=== PATIENT | female | born 1985 | race Two or more races ===

== ENCOUNTER 2018-09-26 13:15 | Emergency (ER) | payer SELFPAY ==
[~2018-09-26] VITALS: Ht 165.1 cm; Wt 69.4 kg
[2018-09-26] MEDS ORDERED: NKM (13:19)
--- NOTE | 2018-09-26 13:25 | NUR ---
ED Nurse Note: Pt BIBA from home due to RLQ abdominal pain with n/v since this morning 1 hr prior to arrival. Pain 10/10 luisa. Last bowel movement was yesterday, was normal. AOx4, VSS luisa. Will cont to monitor.
[2018-09-26] MEDS ORDERED: Metoclopramide 10mg/2ml Inj IVP ONE (13:30)
[2018-09-26] MEDS ORDERED: Morphine Sulfate 4mg/ml Inj (IV USE ONLY) IVP ONE (13:30)
[2018-09-26] MEDS ORDERED: Isovue-300 100ml vial INJ PRN (13:30)
--- NOTE | 2018-09-26 13:45 | Emergency Room Report ---
History of Present Illness General Chief Complaint: Abdominal Pain Source: Patient Present Illness HPI Patient presents with complaints of pain to the right lower quadrant Reports that his started essentially 2 hours prior to arrival sharp pain Patient claims of 1 episode of vomiting denies any diarrhea She also started her menstrual cycle today Denies any chest pain or shortness of breath denies any fevers or chills Patient reports previous cyst removal from the right ovary Denies any vaginal discharge denies any dysuria frequency pain is 10 out of 10 localized to the right lower quadrant Allergies: Coded Allergies: No Known Allergies (Unverified , 09/26/18) Patient History Past Medical History: see triage record Pertinent Family History: none Last Menstrual Period: 09/26/18 Reviewed Nursing Documentation: PMH: Agreed; PSxH: Agreed Nursing Documentation-PMH Past Medical History: No History, Except For Hx Gastrointestinal Problems: No - ovrian cyst Review of Systems All Other Systems: negative except mentioned in HPI Physical Exam Vital Signs Date Time Temp Pulse Resp B/P (MAP) Pulse Ox O2 Delivery O2 Flow Rate FiO2 09/26/18 13:13 98.2 77 18 130/82 100 Room Air Sp02 EP Interpretation: reviewed, normal General Appearance: mild distress - in acute pain Head: normocephalic, atraumatic Eyes: bilateral eye PERRL, bilateral eye EOMI ENT: normal pharynx, no angioedema Neck: supple Respiratory: lungs clear, no retraction, no accessory muscle use Cardiovascular #1: regular rate, rhythm Gastrointestinal: soft, other - Subjectively points to the right lower quadrant Genitourinary: no CVA tenderness Musculoskeletal: normal inspection Neurologic: alert, oriented x3, responsive Skin: normal color, no rash Lymphatic: no adenopathy Medical Decision Making ER Course With the patient's history and examination, multiple differentials considered, including but not limited to , ectopic , ovarian torsion, gastritis, cholecystitis, pancreatitis, appendicitis Last Vital Signs Date Time Temp Pulse Resp B/P (MAP) Pulse Ox O2 Delivery O2 Flow Rate FiO2 09/26/18 13:27 77 18 Room Air 09/26/18 13:13 98.2 130/82 100 Referrals: NOT CHOSEN IPA/,REFERRING (PCP) Janette Estrada DO Sep 26, 2018 13:45
[2018-09-26 13:48] VITALS: BP 114/62
[2018-09-26 13:49] LABS: BASOPHILS % (AUTO) 1.2 % (0.0-2.0); EOSINOPHILS % (AUTO) 0.7 % (0.0-3.0); HEMATOCRIT 36.9 % (37.0-47.0); LYMPHOCYTES % (AUTO) 29.6 % (20.0-45.0); MEAN CORPUSCULAR VOLUME 90 FL (80-99); MONOCYTES % (AUTO) 4.5 % (1.0-10.0); PLATELET COUNT 282 K/UL (150-450); RED CELL DISTRIBUTION WIDTH 11.6 % (11.6-14.8); WHITE BLOOD COUNT 8.3 K/UL (4.8-10.8)
--- NOTE | 2018-09-26 13:51 | NUR ---
ED Nurse Pt went down for US.
[2018-09-26 14:02] LABS: ANION GAP 12 mmol/L (5-15); BLOOD UREA NITROGEN 8 mg/dL (7-18); CARBON DIOXIDE 26 MMOL/L (21-32); CHLORIDE 102 MMOL/L (98-107); CREATININE 0.7 MG/DL (0.55-1.30); POTASSIUM 3.1 MMOL/L (3.5-5.1); SODIUM 139 MMOL/L (136-145)
[2018-09-26 14:06] LABS: ALANINE AMINOTRANSFERASE 17 U/L (12-78); ALBUMIN 3.7 G/DL (3.4-5.0); ALBUMIN/GLOBULIN RATIO 0.8 (1.0-2.7); ALKALINE PHOSPHATASE 67 U/L (46-116); ASPARTATE AMINO TRANSFERASE 14 U/L (15-37); BILIRUBIN,TOTAL 0.3 MG/DL (0.2-1.0)
--- NOTE | 2018-09-26 15:20 | NUR ---
ED Nurse Note: Pt back from CT and US.
[2018-09-26] MEDS ORDERED: Ketorolac 30mg Inj IV ONE (15:30)
[2018-09-26 15:47] LABS: APPEARANCE,URINE SLIGHTLY CLOUDY; BILIRUBIN, URINE NEGATIVE (NEGATIVE); COLOR,URINE PALE YELLOW; GLUCOSE, URINE (UA) NEGATIVE (NEGATIVE); KETONES,URINE 2+ (NEGATIVE); LEUKOCYTE ESTERASE ,URINE NEGATIVE (NEGATIVE); NITRITE,URINE NEGATIVE (NEGATIVE); PH,URINE 8 (4.5-8.0); PROTEIN,URINE NEGATIVE (NEGATIVE); UROBILINOGEN,URINE NORMAL MG/DL (0.0-1.0)
--- NOTE | 2018-09-26 16:27 | Diagnostic Imaging Report ---
Indication: Pelvic pain, negative test Technique: Transabdominal and transvaginal images. Doppler interrogation of the ovaries Comparison: none Findings: Uterus measures 7.3 cm length by 4.9 cm AP. The endometrium measures 5 mm thick. No myometrial abnormality. Small cervical nabothian cysts are incidentally noted. Anterior to the uterus, there is a 14.2 cm diameter unilocular cyst, appears to be adjacent to or arising from the right ovary.. The right ovary measures 3.8 cm in length. The left ovary measures 3.2 cm in length. Both ovaries demonstrate normal blood flow. Trace free pelvic fluid is noted. Impression: 14.2 cm diameter unilocular cystic mass, likely arising from the right ovary. While possibly a large benign functional cyst, given the size the possibility of cystic neoplasm should be considered. Gynecological consultation recommended Findings previously discussed by phone with Dr. Baker in the emergency room
--- NOTE | 2018-09-26 17:06 | Diagnostic Imaging Report ---
Clinical Indication: Right lower quadrant pain and vomiting Technique: No oral contrast utilized, per emergency room physician request IV administration nonionic contrast. Venous phase spiral acquisition obtained through the abdomen and pelvis. Multiplanar reconstructions were generated. Total dose length product 857.5 mGycm. CTDIvol(s) 16.38 mGy. Dose reduction achieved using automated exposure control Comparison: Pelvic sonogram performed earlier the same day Findings: There is a large complex mostly cystic pelvic mass. This demonstrates a dominant cyst which measures 14 cm long axis dimension. There appears to be a posterior solid component there may be some additional cysts in the inferior portion. The cyst wall is perceptible but thin. This appears to be coming off of the right ovary. The left ovary is unremarkable. There is no evidence of regional adenopathy, mesenteric involvement, or ascites. Free pelvic cul-de-sac fluid described on recent ultrasound is not visible on CT. The uterus demonstrates a somewhat thickened endometrium. The appendix is normal. There is no evidence of diverticulosis or diverticulitis. No small bowel distention. No free or loculated intraperitoneal gas or fluid. Distal esophagus, stomach, duodenum are unremarkable. The liver demonstrates a subcentimeter low-attenuation lesion in segment 8 which is too small to characterize. The gallbladder, bile ducts, pancreas, spleen, adrenals, left kidney are unremarkable. There is minimal fullness to the right renal collecting system and proximal ureter. The bladder is distended. The included lung bases are clear. The bones are unremarkable. Impression: 14 cm diameter cystic pelvic mass. This appears to be predominantly a unilocular cyst, although there may be a posterior solid component. Well possibly a very large functional cyst, the possibility of cystic ovarian neoplasm should be considered, and gynecologic evaluation is recommended Mild right renal collecting system fullness, may be due to ureteral compression by the above Subcentimeter low-attenuation lesion in segment 8 of the liver, too small to characterize, most likely benign simple cyst or bile hamartoma. No further follow-up necessary Findings were discussed by phone with Dr. Baker previously The CT scanner at [facility] is accredited by the [employer] and the scans are performed using protocols designed to limit radiation exposure to as low as reasonably achievable to attain images of sufficient resolution adequate for diagnostic evaluation.
[2018-09-26] MEDS ORDERED: IBUPROFEN800 MG ORAL (17:12)
[2018-09-26] MEDS ORDERED: NORCO 5-325 TA1 EACH ORAL (17:12)
[2018-09-26 17:18] VITALS: BP 105/59
--- NOTE | 2018-09-26 17:19 | NUR ---
ER DISCHARGE NOTE: Patient is cleared to be discharged per ERMD, pt is aox4, on room air, with stable vital signs. pt was given dc and prescription instructions, pt was able to verbalize understanding, pt id band and iv site removed without complications. pt is able to ambulate with steady gait. pt took all belongings.
== END 2018-09-26 17:19 | disposition home or self-care (01) ==
LOC: EDBD 13:15 → EMR 13:25
DX: R10.31 Right lower quadrant pain (principal); N83.201 Unspecified ovarian cyst, right side
CPT/HCPCS: 36415; 74177; 76830; 76856; 80053; 81003; 81025; 83690; 84703; 85025; 96361; 96374; 96375; 99284; J1885; J2270; J2765; Q9967